=== PATIENT | female | born 1985 | race Caucasian/White ===

== ENCOUNTER 2019-01-14 14:51 | Emergency (ER) | payer OTHER ==
[~2019-01-14] VITALS: Ht 165.1 cm; Wt 67.1 kg
[2019-01-14 17:48] LABS: ABSOLUTE NEUTROPHILS 2.5 thou/uL (1.4-8.2); EOSINOPHILS 4.9 % (0.0-3.0); HEMOGLOBIN 11.5 gm/dL (12.0-15.0); LYMPHOCYTES 34.1 % (24.0-44.0); MCH 32.7 pg (26.0-34.0); MCHC 34.8 g/dL (28.0-37.0); MCV 93.8 fL (80.0-100.0); MONOCYTES 10.2 % (1.0-8.0); PLATELET COUNT 252 thou/uL (150-400); POLYS 49.8 % (36.0-66.0); RBC 3.52 mil/uL (4.20-5.00); RDW 13.2 % (10.5-14.5); WBC 4.9 thou/uL (4.0-11.0)
[2019-01-14] MEDS ORDERED: NEURONTIN 300300 M1 PO (17:48)
[2019-01-14] MEDS ORDERED: LEVO-T50 MCG PO (17:49)
[2019-01-14] MEDS ORDERED: CYTOMEL 5MCG TA5 MCG PO (17:51)
[2019-01-14 17:57] LABS: CALCIUM 8.7 mg/dL (8.5-10.1); CREATININE 0.8 mg/dL (0.6-1.0); POTASSIUM 3.9 mmol/L (3.5-5.1)
[2019-01-14] MEDS ORDERED: ZOFRAN ODT4 MG PO (18:59)
[2019-01-14 19:43] VITALS: BP 104/63
== END 2019-01-14 19:45 | disposition home or self-care (01) ==
LOC: ER 14:51
PROVIDERS: Nurse Practitioner Family
DX: N93.9 Abnormal uterine and vaginal bleeding, unspecified (principal); R42 Dizziness and giddiness; Z88.1 Allergy status to other antibiotic agents; Z98.890 Other specified postprocedural states